=== PATIENT | female | born 1955 | race Caucasian/White ===

== ENCOUNTER 2017-07-17 04:01 | Emergency (ER) | payer OTHER ==
[2017-07-17] MEDS ORDERED: Sodium Chloride 0.9% 10 ML Syringe FLUSH PRN (04:50)
--- NOTE | 2017-07-17 06:15 | EDM.PDOC ---
<Kemar Wiley - Last Filed: 07/17/17 06:24> ED HPI GENERAL MEDICAL PROBLEM - General Chief Complaint: Respiratory Problem Stated Complaint: SOB Time Seen by Provider: 07/17/17 04:32 Source of Information: Reports: Patient History Limitations: Reports: No Limitations - History of Present Illness INITIAL COMMENTS - FREE TEXT/NARRATIVE: This lady thinks she may have a pulmonary embolus. For about 3 weeks she's been having some pain in the left popliteal fossa. She read some articles about blood clots and now for the past 2 days she's had some pain in her back. It's in the upper back mostly in the midline. This patient also gets chest pain a lot and that's been going on for a long time. She had a cardiac catheter 2 years ago which was normal. Her troponin at that time was slightly elevated. A year ago she had some chest pain and her troponin also was slightly elevated and she had an echocardiogram which was also normal. It was thought she had reflux. She is not having chest pain today however. Today just this morning she is having very slight shortness of breath. She denies any history of any kind of blood clots in the past she also notes that she gets pain in that part of her back a lot and it normally goes away when she puts on something like icy hot but this morning it didn't help any. Her previous heart workups were done at [place]. She denies any swelling or asymmetry or discoloration of the legs Middle Back Pain Score (Numeric/FACES): 2 - Related Data Allergies Allergy/AdvReac Type Severity Reaction Status Date / Time amoxicillin Allergy Rash Verified 07/17/17 04:17 nitrofurantoin Allergy Hives Verified 07/17/17 04:17 [From Macrobid] Past Medical History Respiratory History: Reports: Asthma Gastrointestinal History: Reports: GERD Psychiatric History: Reports: Anxiety - Infectious Disease History Infectious Disease History: Reports: Chicken Pox, Measles Social & Family History - Tobacco Use Smoking Status *Q: Unknown Ever Smoked ED ROS GENERAL - Review of Systems Review Of Systems: See Below Constitutional: Reports: No Symptoms HEENT: Reports: No Symptoms Respiratory: Reports: Shortness of Breath (Very slight) Cardiovascular: Reports: Chest Pain (Occasional), Other (Upper back pain only) Endocrine: Reports: No Symptoms ( vague chest pain) GI/Abdominal: Reports: No Symptoms : Reports: No Symptoms Musculoskeletal: Reports: Other (Upper back pain as noted) Neurological: Reports: No Symptoms Psychiatric: Reports: No Symptoms ED EXAM, GENERAL - Physical Exam Exam: See Below Exam Limited By: No Limitations General Appearance: Alert, WD/WN, No Apparent Distress Eye Exam: Bilateral Eye: Normal Inspection Throat/Mouth: Normal Oropharynx Neck: Normal Inspection Respiratory/Chest: Lungs Clear Cardiovascular: Normal Peripheral Pulses, Regular Rate, Rhythm, No Murmur GI/Abdominal: Normal Bowel Sounds, Soft, Non-Tender Back Exam: Other (There is some mild tenderness to the upper thoracic area and down to the about the level of the scapula it seems to be in the midline and somewhat in paraspinous muscles but no definite spasm is palpable) Extremities: Other (There is some mild to moderate tenderness in the left popliteal fossa but no definite cords are palpated. The calves are normal size and symmetric area there is no discoloration the thighs are normal and there are no areas of tenderness) Neurological: Alert, Oriented Psychiatric: Normal Affect Skin Exam: Warm, Dry, Intact Course - Vital Signs Last Recorded V/S: Last Vital Signs Temp 36.5 C 07/17/17 04:07 Pulse 70 07/17/17 05:52 Resp 15 07/17/17 05:52 BP 159/88 H 07/17/17 05:52 Pulse Ox 98 07/17/17 05:52 - Orders/Labs/Meds Orders: Active Orders 24 hr Category Date Time Status VL Duplex Lwr Ext Veins Ltd Lt [US] Stat Exams 07/17/17 04:42 Taken Sodium Chloride 0.9% [Saline Flush] Med 07/17/17 04:50 Active 10 ml FLUSH ASDIRECTED PRN Saline Lock Insert [OM.PC] Urgent Oth 07/17/17 04:50 Ordered Medication Orders Sodium Chloride (Saline Flush) 10 ml FLUSH ASDIRECTED PRN PRN Reason: Keep Vein Open Last Admin: 07/17/17 05:10 Dose: 10 ml Labs: Laboratory Tests 07/17/17 07/17/17 07/17/17 Range/Units 05:06 05:06 05:06 WBC 6.4 (4.5-11.0) K/uL RBC 5.30 (3.30-5.50) M/uL Hgb 15.1 H (12.0-15.0) g/dL Hct 45.8 (36.0-48.0) % MCV 86 (80-98) fL MCH 29 (27-31) pg MCHC 33 (32-36) % Plt Count 414 H (150-400) K/uL Neut % (Auto) 63 (36-66) % Lymph % (Auto) 27 (24-44) % [place] % (Auto) 8 H (2-6) % Eos % (Auto) 2 (2-4) % Baso % (Auto) 1 (0-1) % D-Dimer, Quantitative < 100 (0.0-400.0) ng/mL Sodium 141 (140-148) mmol/L Potassium 3.4 L (3.6-5.2) mmol/L Chloride 104 (100-108) mmol/L Carbon Dioxide 28 (21-32) mmol/L Anion Gap 12.4 (5.0-14.0) mmol/L BUN 16 (7-18) mg/dL Creatinine 0.7 (0.6-1.0) mg/dL Est Cr Clr Drug Dosing 75.94 mL/min Estimated GFR (MDRD) > 60 (>60) Glucose 134 H (74-106) mg/dL Calcium 8.8 (8.5-10.1) mg/dL Total Bilirubin 0.4 (0.2-1.0) mg/dL AST 19 (15-37) U/L ALT 26 (12-78) U/L Alkaline Phosphatase 76 (46-116) U/L Troponin I (0.000-0.056) ng/mL Total Protein 7.6 (6.4-8.2) g/dL Albumin 3.9 (3.4-5.0) g/dL Globulin 3.7 H (2.3-3.5) g/dL Albumin/Globulin Ratio 1.1 L (1.2-2.2) 07/17/17 07/17/17 Range/Units 05:06 07:52 WBC (4.5-11.0) K/uL RBC (3.30-5.50) M/uL Hgb (12.0-15.0) g/dL Hct (36.0-48.0) % MCV (80-98) fL MCH (27-31) pg MCHC (32-36) % Plt Count (150-400) K/uL Neut % (Auto) (36-66) % Lymph % (Auto) (24-44) % [place] % (Auto) (2-6) % Eos % (Auto) (2-4) % Baso % (Auto) (0-1) % D-Dimer, Quantitative (0.0-400.0) ng/mL Sodium (140-148) mmol/L Potassium (3.6-5.2) mmol/L Chloride (100-108) mmol/L Carbon Dioxide (21-32) mmol/L Anion Gap (5.0-14.0) mmol/L BUN (7-18) mg/dL Creatinine (0.6-1.0) mg/dL Est Cr Clr Drug Dosing mL/min Estimated GFR (MDRD) (>60) Glucose (74-106) mg/dL Calcium (8.5-10.1) mg/dL Total Bilirubin (0.2-1.0) mg/dL AST (15-37) U/L ALT (12-78) U/L Alkaline Phosphatase (46-116) U/L Troponin I 0.106 H* 0.095 H* (0.000-0.056) ng/mL Total Protein (6.4-8.2) g/dL Albumin (3.4-5.0) g/dL Globulin (2.3-3.5) g/dL Albumin/Globulin Ratio (1.2-2.2) Meds: Medications Generic Name Dose Route Start Last Admin Trade Name Freq PRN Reason Stop Dose Admin Sodium Chloride 10 ml 07/17/17 04:50 07/17/17 05:10 Saline Flush FLUSH 10 ml ASDIRECTED PRN Administration Keep Vein Open - Radiology Interpretation Free Text/Narrative:: Left lower extremity venous ultrasound is negative - Re-Assessments/Exams Free Text/Narrative Re-Assessment/Exam: 07/17/17 06:16 EKG shows sinus rhythm at rate of 61. There are some nonspecific T abnormalities in the anterior leads. There are no ST changes. There are no old EKGs available locally to compare with 07/17/17 06:17 labs shows a negative D dimer study. CBC and calves are normal. troponin elevation of 0.106. A request has been made for records from [place]. Depending on what we find we may wind up doing a three-hour troponin on this lady. 07/17/17 06:17 Free Text/Narrative Re-Assessment/Exam: 07/17/17 06:24 records from [place] shows that she had a coronary angiogram April 19, 2015 which was normal and a troponin of 0.086. EKGs did show T inversions in the anterior leads An echo echocardiogram on April 20, 2016 for a year later was normal. T waves the anterior leads are pretty flat on that EKG Departure - Departure Disposition: Home, Self-Care 01 Clinical Impression: Muscle strain, lower leg, Elevated troponin level - Discharge Information Referrals: PCP,None [Primary Care Provider] - Forms: ED Department Discharge Care Plan Goals: pt has a history of chronic elevation in her trop. She had a elevated tropin and this was rechecked in 4-[address] Wiley she will be discharged. <Monica Richmond - Last Filed: 07/17/17 08:28> Departure - Departure Time of Disposition: 08:26 Condition: Fair
--- NOTE | 2017-07-17 08:53 | US ---
VL Duplex Lwr Ext Veins Ltd Lt HISTORY: Pain posterior to the knee. FINDINGS: The deep veins of the left lower extremity demonstrate normal augmentation and compressibil ity. No evidence for deep venous thrombosis. IMPRESSION: Normal lower extremity venous Doppler study.
== END 2017-07-17 08:37 | disposition home or self-care (01) ==
LOC: JP.ED 04:01
DX: S86.912A Strain of unspecified muscle(s) and tendon(s) at lower leg level, left leg, initial encounter (principal); R79.89 Other specified abnormal findings of blood chemistry; J45.909 Unspecified asthma, uncomplicated; Z88.1 Allergy status to other antibiotic agents; Z88.8 Allergy status to other drugs, medicaments and biological substances; X58.XXXA Exposure to other specified factors, initial encounter
CPT/HCPCS: 36415; 80053; 84484; 85025; 85379; 93971; 99284; J7050; 93005

== ENCOUNTER 2025-01-03 13:50 | Emergency (ER) | payer MEDICARE ==
[2025-01-03 14:19] LABS: BASOPHILS PERCENT AUTO 1.2 % (0.1-1.3); EOSINOPHILS ABSOLUTE AUTO 0.09 K/uL (0.00-0.40); EOSINOPHILS PERCENT AUTO 1.1 % (0.0-5.4); HEMOGLOBIN 15.6 g/dL (11.2-15.5); IMMATURE GRAN PERCENT AUTO 0.2 % (0.0-0.7); LYMPHOCYTES ABSOLUTE AUTO 2.54 K/uL (0.8-3.3); LYMPHOCYTES PERCENT AUTO 30.2 % (11.4-47.7); MEAN CORPUSCULAR HEMOGLOBIN 29.6 pg (31.6-35.5); MEAN CORPUSCULAR HGB CONC 33.9 g/dL (31.6-35.5); MEAN CORPUSCULAR VOLUME 87.3 fL (81.4-99.0); MONOCYTES ABSOLUTE AUTO 0.54 K/uL (0.20-0.90); MONOCYTES PERCENT AUTO 6.4 % (3.3-12.6); NEUTROPHILS ABSOLUTE AUTO 5.13 K/uL (1.0-7.6); NEUTROPHILS PERCENT AUTO 60.9 % (40.0-78.1); PLATELET COUNT,PLT 387 K/uL (130-375); RED BLOOD CELL COUNT 5.27 M/uL (3.77-5.24); WHITE BLOOD CELL COUNT,WBC 8.4 K/uL (3.2-11.0)
[2025-01-03 14:26] LABS: IMMATURE GRAN ABSOLUTE AUTO 0.02 K/uL (0.00-0.23)
[2025-01-03 14:43] LABS: BLOOD UREA NITROGEN,BUN 12 mg/dL (7-18); CALCIUM 9.6 mg/dL (8.5-10.1); CARBON DIOXIDE,CO2 25 mmol/L (21-32); CHLORIDE,CL 103 mmol/L (100-108); CREATININE 0.8 mg/dL (0.6-1.0); ESTIMATED GFR 80 mL/min (>60); GLUCOSE RANDOM 131 mg/dL (74-106); POTASSIUM,K 3.5 mmol/L (3.6-5.2); SODIUM,NA 140 mmol/L (140-148)
[2025-01-03 14:47] LABS: ANION GAP 15.5 mmol/L (5.0-14.0)
[2025-01-03 14:48] LABS: TROPONIN I HIGH SENSITIVITY 1171.7 pg/mL (<=60.3)
[2025-01-03] MEDS: Aspirin 81 MG Tab.Chew PO ONE (15:10)
[2025-01-03] MEDS: Heparin Sodium 5,000 Units/ML Vial IVPUSH ONE (15:11)
[2025-01-03] MEDS: Alum Hydrox/Mag Hydrox/Simeth 15 ML, Lidocaine 2% 15 ML PO ONE (15:11)
[2025-01-03] MEDS: Heparin Sodium/D5W 25,000 UNITS/500 ML BAG IV SCH (15:21)
[2025-01-03] MEDS: Nitroglycerin 0.4 MG Tab.SL SL PRN (19:08)
== END 2025-01-03 19:30 ==
LOC: JP.ED 13:50
DX: I21.4 Non-ST elevation (NSTEMI) myocardial infarction (principal); Z88.0 Allergy status to penicillin; Z88.1 Allergy status to other antibiotic agents; Z79.899 Other long term (current) drug therapy
CPT/HCPCS: 36415; 71046; 71046-26; 80048; 84484; 85025; 85730; 93005; 93010; 96365; 96366; 99285; 99285-25; A9270-GY; J1644